=== PATIENT | male | born 1960 | race Caucasian/White ===

== ENCOUNTER 2021-02-02 11:05 | Outpatient (REF) | payer OTHER, SELFPAY ==
[2021-02-02 11:48] LABS: Influenza A PCR NEGATIVE (Negative); Influenza B PCR NEGATIVE (Negative); Resp Syncy Virus RNA Qual PCR NEGATIVE (Negative); SARS COV2 PCR INHOUSE NEGATIVE (Negative)
== END 2021-02-02 11:06 | disposition home or self-care (01) ==
LOC: HO.LNP 11:05
PROVIDERS: Visit Provider Internal Medicine
DX: Z20.822 Contact with and (suspected) exposure to COVID-19 (principal); R07.9 Chest pain, unspecified; R05 Cough
CPT/HCPCS: 0241U

== ENCOUNTER 2021-09-08 06:03 | Outpatient (REF) | payer OTHER, SELFPAY ==
[2021-09-08 06:14] LABS: MANUAL DIFF FLAG NO
[2021-09-08 07:21] LABS: Basophils Absolute Auto 0.1 X10*3/uL (0.0-0.2); Basophils Percent Auto 0.8 % (0-2); Hematocrit 53.5 % (42.0-52.0); Hemoglobin 17.6 g/dl (14.0-18.0); Imm Gran Abs Auto 0.02 X10*3/uL (0.00-0.03); Imm Gran Pct Auto 0.3 % (0.0-0.4); Lymphocytes Absolute Auto 2.3 X10*3/uL (1.2-4.9); Lymphocytes Percent Auto 35.8 % (20-40); Mean Corpuscular HGB Conc 32.9 g/dl (31.0-36.0); Mean Corpuscular Hemoglobin 29.3 pg (27.0-33.0); Mean Corpuscular Volume 89.2 fL (80.0-98.0); Mean Platelet Volume 10.7 fL (9.4-12.4); Monocytes Absolute Auto 0.6 X10*3/uL (0.1-1.2); Monocytes Percent Auto 9.8 % (2-11); Neutrophils Absolute Auto 3.5 x10*3/uL (2.0-8.3); Neutrophils Percent Auto 53.3 % (45-73); Platelet Count 239 X10*3/uL (160-400); Red Cell Distribution Width 12.9 % (11.0-16.0); White Blood Count 6.5 X10*3/uL (4.8-10.8)
[2021-09-08 07:52] LABS: Alanine Aminotransferase 26 U/L (0-40); Albumin Level 4.4 g/dL (3.5-5.0); Alkaline Phosphatase 68 U/L (39-117); Anion Gap 11 (12-20); Aspartate Amino Transferase 19 U/L (5-37); Bilirubin Total 1.7 mg/dL (0.0-1.0); Blood Urea Nitrogen 13 mg/dL (9-16); Calcium 9.7 mg/dL (8.4-10.2); Carbon Dioxide 30 mmol/L (22-29); Chloride 103 mmol/L (96-108); Cholesterol 163 mg/dL; Estimated Glomerular Filt Rate > 60; Glucose Fasting 96 mg/dL (60-99); HDL Cholesterol 41 mg/dL; LDL Cholesterol Calculated 101 mg/dl; Potassium 4.3 mmol/L (3.3-5.1); Sodium 140 mmol/L (135-145); Total Protein 7.1 g/dL (6.5-8.0); Triglycerides 106 mg/dL
[2021-09-08 08:41] LABS: Prostate Specific Antigen Scr 1.61 ng/mL (<0.05-4.0)
== END 2021-09-08 06:04 | disposition home or self-care (01) ==
LOC: HO.LAB 06:03
PROVIDERS: PCP Internal Medicine; Visit Provider Internal Medicine
DX: Z00.00 Encounter for general adult medical examination without abnormal findings (principal); Z12.5 Encounter for screening for malignant neoplasm of prostate
CPT/HCPCS: 36415; 80053; 80061; 84153; 85025

== ENCOUNTER 2021-10-01 06:56 | Day surgery (SDC) | payer OTHER, SELFPAY ==
--- NOTE | 2021-09-30 10:20 | P.CONAN_ITS ---
Documented by User: Greta George NP 09/30/21 10:20 HPI - Anesthesia Eval Consult details Narrative: 60yo M for Colonoscopy COUNT INCLUDES THE [facility] Past Medical History Medical History (Updated 09/27/21 @ 11:49 by Margot Ludwig RN) HTN (hypertension) Surgical History Surgical History (Updated 09/27/21 @ 11:49 by Margot Ludwig RN) History of appendectomy History of left inguinal hernia repair Hx of colonoscopy Social History Social History Patient Tobacco Use Status: Never used Tobacco Use of substances other than those prescribed or required for medical reasons: No Are you DNR?: No Advance Directives: No Advance Directives Information Provided: Yes Nutrition Risks: No Nutritional Risk Meds Allergies Allergy/AdvReac Type Severity Reaction Status Date / Time FLORES ALEXUS Allergy Unknown RUNNY NOSE Uncoded 09/27/21 11:49 Home Medications Medication Instructions Recorded Confirmed Last Taken Type aspirin 81 mg tablet,delayed 81 mg PO DAILY 09/27/21 09/27/21 09/21/21 History release lisinopril 20 mg tablet 1 tab PO DAILY 09/27/21 09/27/21 10/01/21 History Exam Exam Date and Time: September 30, 2021 1020 Pertinent Lab Results Pertinent Lab Results: Laboratory Tests 09/08/21 09/08/21 06:11 06:11 WBC 6.5 Hgb 17.6 Hct 53.5 H Plt Count 239 Sodium 140 Potassium 4.3 Chloride 103 Carbon Dioxide 30 H BUN 13 Creatinine 1.00 Assessment and Plan Assessment Anesthesia Assessment: Chart Reviewed Documented by User: Jay Forte MD 10/04/21 21:21 COUNT INCLUDES THE [facility] Past Medical History Medical History (Updated 09/27/21 @ 11:49 by Margot Ludwig RN) HTN (hypertension) Functional capacity: independent ambulation Family History Family history of problems with anesthesia: No Surgical History Surgical History (Updated 09/27/21 @ 11:49 by Margot Ludwig RN) History of appendectomy History of left inguinal hernia repair Hx of colonoscopy History of Problems with Anesthesia: Yes (Delayed emergence ) Social History Social History Patient Tobacco Use Status: Never used Tobacco Use of substances other than those prescribed or required for medical reasons: No Are you DNR?: No Advance Directives: No Advance Directives Information Provided: Yes Nutrition Risks: No Nutritional Risk Meds Allergies Allergy/AdvReac Type Severity Reaction Status Date / Time FLORES ALEXUS Allergy Unknown RUNNY NOSE Uncoded 09/27/21 11:49 Home Medications Medication Instructions Recorded Confirmed Last Taken Type aspirin 81 mg tablet,delayed 81 mg PO DAILY 09/27/21 09/27/21 09/21/21 History release lisinopril 20 mg tablet 1 tab PO DAILY 09/27/21 09/27/21 10/01/21 History Exam Airway Mallampati Class: II TM Dist: >3cm Neck ROM: Limited Loose/Missing/Broken Teeth: Yes (Poor dentation ) Heart: rrr Lungs: b/l breath sounds Assessment and Plan Assessment Anesthesia Assessment: Anesthesia Plan Discussed Final Anesthetic Review Family History of Problems with Anesthesia: No History of Problems with Anesthesia: Yes (Delayed emergence ) NPO: Yes ASA Class: II Final Preanesthetic Review: Meds/Allgs Chart Reviewed, Consent Obtained/Reviewed and Anes Risks/Benef Reviewed Patient Risk: Intermediate Procedure Risk: Intermediate Anesthetic Plan Anesthetic Plan: MAC: Disposition: Standard PACU
[2021-10-01 07:03] VITALS: BMI 27.9
[2021-10-01 07:07] VITALS: BP 122/91; PULSE 111; RESP 18; TEMP 36.3; O2SAT 95
[2021-10-01] MEDS: Lactated Ringers 1,000 ML 100 ML IVCONT (07:15)
[2021-10-01 08:35] VITALS: BP 93/56; PULSE 81; RESP 19; TEMP 36.6; O2SAT 96
--- NOTE | 2021-10-01 08:35 | P.BOP_ITS ---
Brief Operative Note Date of Service: 10/01/21 Pre-op diagnosis: Screening Post-op diagnosis: other (Colon polyp) Procedure: Colonoscopy to the cecum and TI with cold snare polypectomy Surgeon: Dayday Banks Anesthesia: MAC Was an Pharmaceutical Physician used for this Procedure?: No Estimated blood loss (mL): 2.0 Pathology: other (A. Ascending colon polyp) Condition: stable Disposition: PACU
[2021-10-01 08:50] VITALS: BP 114/73; PULSE 73; RESP 16; TEMP 36.6; O2SAT 95
--- NOTE | 2021-10-01 11:48 | OP_ITS ---
SURGEON: Dayday Banks MD INDICATIONS: The patient presents for evaluation of personal history of tubular adenoma of the colon, and family history of colon cancer. Full consent obtained from him for this, including risks of bleeding and perforation. PREOPERATIVE DIAGNOSIS: POSTOPERATIVE DIAGNOSIS: PROCEDURE PERFORMED: Colonoscopy to cecum and terminal ileum with cold snare polypectomy. ESTIMATED BLOOD LOSS: COMPLICATIONS: ANESTHESIA: Monitored anesthesia care. ASSISTANTS: SPECIMENS: PREOPERATIVE DIAGNOSES: Personal history of tubular adenoma of the colon, family history colon cancer, colorectal cancer screening. POSTOPERATIVE DIAGNOSES: Personal history of tubular adenoma of the colon, family history colon cancer, colorectal cancer screening, small colon polyp, diverticulosis, and internal hemorrhoids. DESCRIPTION OF PROCEDURE: The patient was placed in the left lateral decubitus position. The digital rectal exam revealed no abnormalities. The Olympus video pediatric colonoscope was entered into the rectum and advanced easily to the cecum. Once in the cecum, identified normal-appearing cecal pouch with a normal-appearing ileocecal valve. The entire cecum was well visualized and appeared normal. The terminal ileum was cannulated and appeared normal. The scope was withdrawn back in the colon. The entire cecum and ileocecal valve appeared normal. The scope was slowly withdrawn assessing all mucosal surfaces carefully. Preparation was excellent. In the proximal ascending colon, there was a flat approximately 5 mm polyp, which was removed with cold snare polypectomy and recovered by suction. The polypectomy site appeared free of any residual polyp tissue and without any significant bleeding. I did not visualize any other polyps, colitis, nor angiodysplasia. There was a mild amount of sigmoid diverticulosis. In the rectum, scope was retroflexed visualizing small internal hemorrhoids, but no other pathology. The rectal mucosa appeared normal. The scope was straightened and withdrawn from the patient. He tolerated the procedure well and was returned to the recovery area in stable condition. IMPRESSION: 1. Small colon polyp, status post cold snare polypectomy. 2. Mild diverticulosis. 3. Small internal hemorrhoids. PLAN: The results of the pathology will be checked. I would recommend a repeat colonoscopy in 5 years for further screening. He was advised not to use any aspirin or NSAIDs for 1 week. MD MANJULA Diaz/ALFRED / [id number]
== END 2021-10-01 09:30 | disposition home or self-care (01) ==
PROVIDERS: PCP Internal Medicine; Visit Provider Internal Medicine
PROC: 0DJD8ZZ Inspection of Lower Intestinal Tract, Via Natural or Artificial Opening Endoscopic (ICD-10-PCS; CPT 45378; principal; 2021-10-01 08:20)
DX: Z12.11 Encounter for screening for malignant neoplasm of colon (principal); D12.2 Benign neoplasm of ascending colon; K57.30 Diverticulosis of large intestine without perforation or abscess without bleeding; K64.8 Other hemorrhoids; Z86.010 Personal history of colon polyps; Z80.0 Family history of malignant neoplasm of digestive organs; I10 Essential (primary) hypertension; Z79.82 Long term (current) use of aspirin; Z79.899 Other long term (current) drug therapy
CPT/HCPCS: 45385; 88305

== ENCOUNTER 2023-03-13 06:06 | Outpatient (REF) | payer OTHER, SELFPAY ==
[2023-03-13 06:15] LABS: MANUAL DIFF FLAG NO
[2023-03-13 08:06] LABS: Basophils Absolute Auto 0.1 X10*3/uL (0.0-0.2); Basophils Percent Auto 0.8 % (0-2); Eosinophils Absolute Auto 0.1 X10*3/uL (0.0-0.4); Eosinophils Percent Auto 0.8 % (0-4); Hemoglobin 18.1 g/dl (14.0-18.0); Imm Gran Abs Auto 0.03 X10*3/uL (0.00-0.03); Imm Gran Pct Auto 0.5 % (0.0-0.4); Lymphocytes Absolute Auto 2.2 X10*3/uL (1.2-4.9); Lymphocytes Percent Auto 33.4 % (20-40); Mean Corpuscular HGB Conc 33.5 g/dl (31.0-36.0); Mean Corpuscular Hemoglobin 29.1 pg (27.0-33.0); Mean Corpuscular Volume 86.7 fL (80.0-98.0); Mean Platelet Volume 10.4 fL (9.4-12.4); Monocytes Absolute Auto 0.9 X10*3/uL (0.1-1.2); Neutrophils Absolute Auto 3.3 x10*3/uL (2.0-8.3); Neutrophils Percent Auto 50.5 % (45-73); Platelet Count 227 X10*3/uL (160-400); Red Blood Count 6.23 X10*6/uL (4.60-5.80); Red Cell Distribution Width 13.2 % (11.0-16.0); White Blood Count 6.5 X10*3/uL (4.8-10.8)
[2023-03-13 08:29] LABS: Appearance Urine Clear; Color Urine Yellow; Glucose Urine UA Negative (Negative); Leukocyte Esterase Urine Negative (Negative); Nitrite Urine Negative (Negative); PH 6.5 (5.0-9.0); Specific Gravity - Urine 1.015 (1.005-1.025); Urine Blood Negative (Negative); Urine Ketones Negative (Negative); Urine Protein Negative (Neg-Trace)
[2023-03-13 08:43] LABS: Alanine Aminotransferase 39 U/L (0-40); Albumin Level 4.4 g/dL (3.5-5.0); Alkaline Phosphatase 73 U/L (39-117); Anion Gap 12 (12-20); Aspartate Amino Transferase 28 U/L (5-37); Bilirubin Total 1.7 mg/dL (0.0-1.0); Blood Urea Nitrogen 13 mg/dL (9-16); Calcium 9.6 mg/dL (8.4-10.2); Carbon Dioxide 28 mmol/L (22-29); Chloride 106 mmol/L (96-108); Cholesterol 159 mg/dL (<200); Estimated Glomerular Filt Rate > 60; Glucose Fasting 93 mg/dL (60-99); HDL Cholesterol 46 mg/dL (>40); LDL Cholesterol Calculated 94 mg/dL (<100); Potassium 4.1 mmol/L (3.3-5.1); Sodium 142 mmol/L (135-145); Total Protein 7.3 g/dL (6.5-8.0); Triglycerides 96 mg/dL (<150)
[2023-03-13 08:54] LABS: Prostate Specific Antigen 1.76 ng/mL (<0.05-4.0)
== END 2023-03-13 06:07 | disposition home or self-care (01) ==
LOC: HO.LAB 06:06
PROVIDERS: PCP Internal Medicine; Visit Provider Internal Medicine
DX: Z00.00 Encounter for general adult medical examination without abnormal findings (principal); Z12.5 Encounter for screening for malignant neoplasm of prostate; R80.9 Proteinuria, unspecified; Z13.6 Encounter for screening for cardiovascular disorders
CPT/HCPCS: 36415; 80053; 80061; 81003; 84153; 85025

== ENCOUNTER 2023-07-26 16:02 | Outpatient (REF) | payer OTHER, SELFPAY ==
[2023-07-26 16:18] LABS: MANUAL DIFF FLAG NO
[2023-07-26 17:57] LABS: Basophils Absolute Auto 0.1 X10*3/uL (0.0-0.2); Basophils Percent Auto 0.8 % (0-2); Eosinophils Percent Auto 0.1 % (0-4); Hematocrit 53.1 % (42.0-52.0); Hemoglobin 18.1 g/dl (14.0-18.0); Imm Gran Abs Auto 0.03 X10*3/uL (0.00-0.03); Imm Gran Pct Auto 0.4 % (0.0-0.4); Lymphocytes Absolute Auto 2.5 X10*3/uL (1.2-4.9); Mean Corpuscular HGB Conc 34.1 g/dl (31.0-36.0); Mean Corpuscular Hemoglobin 29.5 pg (27.0-33.0); Mean Corpuscular Volume 86.6 fL (80.0-98.0); Monocytes Absolute Auto 0.8 X10*3/uL (0.1-1.2); Monocytes Percent Auto 10.1 % (2-11); Neutrophils Absolute Auto 4.4 x10*3/uL (2.0-8.3); Neutrophils Percent Auto 56.6 % (45-73); Platelet Count 245 X10*3/uL (160-400); Red Blood Count 6.13 X10*6/uL (4.60-5.80); Red Cell Distribution Width 13.1 % (11.0-16.0); White Blood Count 7.8 X10*3/uL (4.8-10.8)
[2023-07-26 18:32] LABS: Appearance Urine Clear; Color Urine Yellow; Glucose Urine UA Negative (Negative); Leukocyte Esterase Urine Negative (Negative); Nitrite Urine Negative (Negative); Specific Gravity - Urine 1.015 (1.005-1.025); Urine Blood Negative (Negative); Urine Ketones Negative (Negative); Urine Protein Negative (Neg-Trace)
[2023-07-26 18:44] LABS: Anion Gap 12 (12-20); Blood Urea Nitrogen 10 mg/dL (9-16); C Reactive Protein < 0.04 mg/dL (< or = 0.50); Calcium 9.6 mg/dL (8.4-10.2); Carbon Dioxide 27 mmol/L (22-29); Chloride 106 mmol/L (96-108); Estimated Glomerular Filt Rate > 60; Glucose Random 79 mg/dL (60-115); Potassium 3.8 mmol/L (3.3-5.1); Sodium 141 mmol/L (135-145)
== END 2023-07-26 16:03 | disposition home or self-care (01) ==
LOC: HO.LAB 16:02
PROVIDERS: PCP Internal Medicine; Visit Provider Internal Medicine
DX: R10.32 Left lower quadrant pain (principal)
CPT/HCPCS: 36415; 80048; 81003; 85025; 86140; 87086

== ENCOUNTER 2024-06-15 07:28 | Outpatient (REF) | payer BC, SELFPAY ==
[2024-06-15 07:44] LABS: MANUAL DIFF FLAG NO
[2024-06-15 08:28] LABS: Basophils Absolute Auto 0.1 X10*3/uL (0.0-0.2); Basophils Percent Auto 1.2 % (0-2); Eosinophils Percent Auto 0.3 % (0-4); Hematocrit 51.4 % (42.0-52.0); Hemoglobin 17.6 g/dl (14.0-18.0); Imm Gran Abs Auto 0.02 X10*3/uL (0.00-0.03); Imm Gran Pct Auto 0.3 % (0.0-0.4); Lymphocytes Absolute Auto 2.1 X10*3/uL (1.2-4.9); Lymphocytes Percent Auto 35.7 % (20-40); Mean Corpuscular HGB Conc 34.2 g/dl (31.0-36.0); Mean Corpuscular Hemoglobin 29.9 pg (27.0-33.0); Mean Corpuscular Volume 87.4 fL (80.0-98.0); Mean Platelet Volume 10.8 fL (9.4-12.4); Monocytes Absolute Auto 0.5 X10*3/uL (0.1-1.2); Monocytes Percent Auto 9.4 % (2-11); Neutrophils Absolute Auto 3.1 x10*3/uL (2.0-8.3); Neutrophils Percent Auto 53.1 % (45-73); Platelet Count 206 X10*3/uL (160-400); Red Blood Count 5.88 X10*6/uL (4.60-5.80); Red Cell Distribution Width 13.3 % (11.0-16.0); White Blood Count 5.8 X10*3/uL (4.8-10.8)
[2024-06-15 09:08] LABS: Alanine Aminotransferase 29 U/L (0-40); Albumin Level 4.5 g/dL (3.5-5.0); Alkaline Phosphatase 64 U/L (39-117); Anion Gap 11 (12-20); Aspartate Amino Transferase 20 U/L (5-37); Bilirubin Total 1.6 mg/dL (0.0-1.0); Blood Urea Nitrogen 16 mg/dL (9-16); Calcium 9.2 mg/dL (8.4-10.2); Carbon Dioxide 28 mmol/L (22-29); Chloride 107 mmol/L (96-108); Cholesterol 179 mg/dL (<200); Estimated Glomerular Filt Rate > 60; Glucose Fasting 103 mg/dL (60-99); HDL Cholesterol 47 mg/dL (>40); LDL Cholesterol Calculated 115 mg/dL (<100); Potassium 3.9 mmol/L (3.3-5.1); Sodium 142 mmol/L (135-145); Total Protein 7.2 g/dL (6.5-8.0); Triglycerides 89 mg/dL (<150)
[2024-06-15 09:21] LABS: Prostate Specific Antigen 2.09 ng/mL (<0.05-4.0)
== END 2024-06-15 07:29 | disposition home or self-care (01) ==
LOC: HO.LAB 07:28
PROVIDERS: PCP Internal Medicine; Visit Provider Internal Medicine
DX: I10 Essential (primary) hypertension (principal); N40.0 Benign prostatic hyperplasia without lower urinary tract symptoms; Z12.5 Encounter for screening for malignant neoplasm of prostate
CPT/HCPCS: 36415; 80053; 80061; 84153; 85025

== ENCOUNTER 2024-12-23 15:33 | Outpatient (AMB) | payer OTHER, SELFPAY ==
--- NOTE | 2024-12-23 15:41 | A.OFFPC_ITS ---
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: No Accompanied by: Self / Same As Patient Allergies FLORES ALEXUS Allergy (Unknown, Uncoded 01/07/25 19:15) RUNNY NOSE Medication List - Last Reconciled 01/07/25 by Skyler Walden MD lisinopril 1 tab PO DAILY Tobacco use date assessed: 12/23/24 Fall risk assessment: No Falls in past year Last assessed Fall Risk: 12/23/24 Dental Screening Dental Screen Date: 12/23/24 Did you have a dental visit in the last 12 months?: No Did you have a dental problem in the last 6 months where you did not have access to dental care?: No [facility] Medical History (Updated 12/23/24 @ 16:05 by Skyler Walden MD) HTN (hypertension) Surgical History History of left inguinal hernia repair History of appendectomy Hx of colonoscopy (~10/01/21) Family History (Updated 12/23/24 @ 15:49 by Nalini Villatoro MA) Mother No problems noted. Father No problems noted. Social History Housing: House Patient Tobacco Use Status: Former Tobacco user e-Cigarette/Vaping Use: Former Use Current occupational status: retired Cognitive needs: No Hearing needs: No Vision needs: Yes (rx glasses) Questionnaire PHQ-9 Over the last 2 weeks, how often have you been bothered by any of the following problems? 1. Little interest or pleasure in doing things: not at all 2. Feeling down, depressed, or hopeless: not at all 3. Trouble falling or staying asleep, or sleeping too much: not at all 4. Feeling tired or having little energy: not at all 5. Poor appetite or overeating: not at all 6. Feeling bad about yourself - or that you are a failure or have let yourself or your family down: not at all 7. Trouble concentrating on things, such as reading the newspaper or watching television: not at all 8. Moving or speaking so slowly that other people could have noticed. Or the opposite - being so fidgety or restless that you have been moving around a lot more than usual: not at all 9. Thoughts that you would be better off or of hurting yourself in some way: not at all Total score: 0 Depression Screening Interpretation: Negative Depression Screening Done: Yes Source: Developed by Drs. Dayday Mei, Humaira Lerma, Jaden Belcher and colleagues, with an educational anibal from [employer]. Thrive Questionnaire Date Thrive assessed: 12/23/24 I am a: Patient Within the past 12 months, did the food you bought not last and you didn't have the money to get more?: Never true Within the past 12 months, did you worry whether your food would run out before you got money to buy more?: Never true Do you have trouble paying for medicines?: No Do you have trouble getting transportation to medical appointments?: No Do you have trouble paying your heating and electricity bill?: No Do you have trouble taking care of your child, family member or friend?: No Do you have trouble with day-to-day activities such as bathing, preparing meals, shopping, managing finances, etc.?: No Are you currently unemployed and looking for a job?: No Are you interested in more education?: No Currently or been in a relationship where the following occur: No concerns rep orted THRIVE Score: 0 AUDIT C Alcohol Use Questionnaire (AUDIT-C) 1. How often do you have a drink containing alcohol?: Never 3. How often do you have six or more drinks on one occasion?: Never Total Score: 0 ISREAL-7 AMB Questionnaire ISREAL-7 Date ISREAL - 7 assessed: 12/23/24 Feeling nervous, anxious, or on edge: 0 = Not at all Not being able to stop or control worryin = Not at all Worrying too much about different things: 0 = Not at all Trouble relaxin = Not at all Being so restless that it is hard to sit still: 0 = Not at all Becoming easily annoyed or irritable: 0 = Not at all Feeling afraid as if something awful might happen: 0 = Not at all Total ISREAL-7 score (0-4 normal; 5-9 mild; 10-14 moderate; 15-21 severe): 0 Source: Developed by Drs. Dayday Mei, Humaira Lerma, Jaden Belcher and colleagues, with an educational anibal from [employer]. Physical exam (Primary Care) Vital Signs: Last Vital Signs Temp 97.1 F 12/23/24 15:43 Pulse 73 12/23/24 15:43 BP 132/80 12/23/24 15:43 Pulse Ox 98 12/23/24 15:43 Oxygen Delivery Method Room Air 12/23/24 15:43 Care Plan Goal for BP management: BP in range BMI result Body Mass Index 28.6 Tobacco/Smoking Status: Tobacco use Status Tobacco use date assessed 12/23/24 12/23/24 15:43 Patient Tobacco Use Status Former Tobacco user 12/23/24 15:49 e-Cigarette/Vaping Use Former Use 12/23/24 15:49 PHQ-9: PHQ-9 Score PHQ-9: Total score 0 12/23/24 16:15 Depression Screening Interpretation: Negative Thrive Assessment: Date of Thrive Assessment Date Thrive assessed 12/23/24 12/23/24 15:43 Currently or been in a relationship where the following occur: No concerns reported Coding Level of Care Code New Pt Level 4 (17698) Complex EM visit Add On G2211 Diagnoses HTN (hypertension) I10 Assessment & Plan Assessment & Plan (1) HTN (hypertension): Code(s): I10 - Essential (primary) hypertension Category: Medical Plan: History of Present Illness - The patient is a 64-year-old male presenting with a wellness visit. - Reports lower back pain, described as inflammation that is triggered occasionally, but has been well-managed this year. - Engages in regular physical activity, including walking and golfing five to six times a week, which he believes helps manage his back pain. - History of a colonoscopy performed in 2020, with the next one due next year, delayed due to COVID-19. - Reports increased urinary frequency, particularly at night, needing to urinate once or twice, but denies any issues with urination during the day. - History of wearing contact lenses and reports good vision with annual check- ups. 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 - He engages in regular physical activity, including walking and golfing five to six times a week. - The patient reports not eating very well but maintains an active lifestyle. Review of Systems - Musculoskeletal: Reports lower back pain, described as inflammation that is triggered occasionally. - Genitourinary: Reports increased urinary frequency, particularly at night, needing to urinate once or twice. Denies issues with urination during the day. - Ophthalmologic: Reports good vision with the use of contact lenses and annual check-ups. Physical Exam General: Cooperative and healthy appearing Nutritional Appearance: Well nourished Orientation/consciousness: Patient oriented x3 Limitations: No limitations Head: Normal to inspection General: Appearance normal, both eyes and all related structures Neck: Normal visual inspection Chest: Normal palpation of entire chest wall Respiratory: N ormal respiratory effort Neurology: Patient oriented x3, no significant neurological complaints noted. Results Plan 1. Lower Back Pain - Continue regular physical activity, including walking and golfing, as it helps manage symptoms. 2. Preventative Care: Colonoscopy - Schedule colonoscopy for next year as part of routine preventative care. Discussion Notes Patient Instructions Orders: Orders Lipase 12/23/24 K85.90 - Acute pancreatitis without necrosis or infection, unspecified, I10 - Essential (primary) hypertension Lipid Panel 12/23/24 I10 - Essential (primary) hypertension UA and rflx microscopic 12/23/24 I10 - Essential (primary) hypertension Liver Panel 12/23/24 I10 - Essential (primary) hypertension Basic Metabolic Panel 12/23/24 I10 - Essential (primary) hypertension Complete Blood Count no Diff 12/23/24 I10 - Essential (primary) hypertension Thyroid Stimulating Hormone 12/23/24 I10 - Essential (primary) hypertension
[2024-12-23 15:43] VITALS: BP 132/80; PULSE 73; TEMP 36.2; O2SAT 98; BMI 28.6
--- OUTSIDE RECORDS SUMMARY | 2024-12-23 17:01 | XMS_ITS | Patient Health Record ---
Author Organization [facility] Address [address] [place] [address] Care Team Providers Care Whiskey Proof Reader Name Role Phone Luis Carlos Gan MD Primary Care Provider Dayday Gunn Unavailable [phone] Allergies No Known Allergies Reason For Referral No Information Medications Medication SIG (Take, Route, Fr equency, Duration) Notes Start Date End Date Status Aspirin 81 81 MG 1 tablet Orally twice a week Active Lisinopril 20 MG 1 tablet Orally Once a day Active Immunizations Vaccine Route Administration Date Status Comme nts Influenza Unknown 08/11/2021 Refused Influenza Unknown 08/11/2021 Refused Problems Problem Type SNOMED Code ICD Code Onset Dates Problem Status W/U Status Risk Notes Problem 996870255 Encounter for screening for malignant neoplasm of colon (Z12.11) Active confirmed Problem Screening for malignant neoplasm of rectum (233064947) Encounter for screening for malignant neoplasm of rectum (Z12.12) Active confirmed Problem 91456122 Preprocedural examination (Z01.818) Active confirmed Problem 996623971 Family history o f colon cancer (Z80.0) Active confirmed Problem 063874316 Hx of adenomatou s colonic polyps (Z86.010) Active confirmed Problem Diverticulosis of colon (919560334) Diverticulosis of colon (K57.30) Active confirmed Plan Of Treatment Pending Test Test Name Order Date Pathology 10/01/2021 Future Test Test Name Order Date COLONOSCOPY 12/16/2015 COLONOSCOPY 08/11/2021 Insurance Providers Payer Name Payer Address Payer Phone Subscriber Number Group Number Insured Name Patient Relationship to Insured Coverage Start Date Coverage End Date [facility] [address] [place] [address] [id number] PROST, CONSTANT Self - patient is the insured Medical (General) History Medical History History ICD Code Hypertension Denies HI,DM,CVA,Lung disease,renal dise ase Negative colonoscopy in 07/[address] Burr Colonoscopy in April of 2016--small tu bular adenoma removed Surgical History Surgery Date(Month/Year) Appendectomy 2013 Left inguinal and umbilical hernia repai r 2010
== END 2024-12-23 16:05 | disposition home or self-care (01) ==
LOC: HO.HMCHD 15:33
PROVIDERS: PCP Internal Medicine; Visit Provider Internal Medicine
DX: I10 Essential (primary) hypertension (principal)

== ENCOUNTER → 2024-12-23 15:33 | Outpatient (BNVA) | payer OTHER, SELFPAY | PROVIDERS: PCP Internal Medicine; Visit Provider Internal Medicine | DX: Z13.89 Encounter for screening for other disorder (principal) ==

== ENCOUNTER 2025-03-18 07:50 | Outpatient (REF) | payer OTHER, SELFPAY ==
--- OUTSIDE RECORDS SUMMARY | 2025-03-18 07:54 | XMS_ITS | Patient Health Record ---
Author Organization [facility] Address [address] [place] [address] Care Team Providers Care Fisher Diving Name Role Phone Elvia (RETIRED) Luis Carlos ESCAMILLA Primary Care Provide r Unavailable Dayday Banks Unavailable [phone] Allergies No Known Allergies Reason For Referral [...] Problem Status W/U Status Risk Notes Problem 740942944 Encounter for screening for malignant neoplasm of colon (Z12.11) Active confirmed Problem Screening for malignant neoplasm of rectum (259500034) Encounter for screening for malignant neoplasm of rectum (Z12.12) Active confirmed Problem 49369654 Preprocedural examination (Z01.818) Active confirmed Problem 389040116 Family history o f colon cancer (Z80.0) Active confirmed Problem 244534589 Hx of adenomatou s colonic polyps (Z86.010) Active confirmed Problem Diverticulosis of colon (059775391) Diverticulosis of colon (K57.30) Active confirmed Plan Of Treatment Pending Test Test Name Order Date Pathology 10/01/2021 Future Test Test Name Order Date COLONOSCOPY 12/16/2015 COLONOSCOPY 08/11/2021 Insurance Providers Payer Name Payer Address Payer Phone Subscriber Number Group Number Insured Name Patient Relationship to Insured Coverage Start Date Coverage End Date [facility] [address] [place] [address] [id number] PROST, CONSTANT Self - patient is the insured Medical (General) History Medical History History ICD Code Hypertension Denies [place],DM,CVA,Lung disease,renal dise ase Negative colonoscopy in 07/[address] Burr Colonoscopy in April of 2016--small tu bular adenoma removed Surgical History Surgery Date(Month/Year) Appendectomy 2013 Left inguinal and umbilical hernia repai r 2010
--- OUTSIDE RECORDS SUMMARY | 2025-03-18 07:54 | XMS_ITS | Clinical Summary ---
Author Organization [facility] Address [address] [place] [phone] Phone Care Team Providers Care Networks Software Consultant Name Role Phone Skyler Walden MD Primary Care Provid er Allergies No known active allergies Medications lisinopril (PRINIVIL,ZESTRI L) 20 MG tablet 1 tablet Orally Once a day Active Active Problems Problem Noted Date Diagnosed Date Diverticulosis of colon 02/02/2025 Hx of adenomatous colonic polyps 02/02/2025 Family history of colon cancer 02/02/2025 Encounters Date Type Department Care Team Description 02/02/2025 1:40 PM EDT Office Visit [facility] [address] [address] Keri Ford CNP Acute cough (Primary Dx) from Last 3 Months Immunizations No known immunizations Social History Tobacco Use Types Packs/Day Years Used Date Smoking Tobacco: Former Cigarettes Q uit: 1985 Passive Smoke Exposure: Current Smokeless Tobacco: Never Tobacco Cessation:Counseling Given: Not Answered Education Answer Date Recorded Are you interested in more education? Not on rashawn e 02/02/2025 Are you concerned about learning? Not on file 02/02/2025 No 02/02/2025 No 02/02/2025 Digital Access Answer Date Recorded No 02/02/2025 No 02/02/2025 Reliable internet access at home? Not on file 02/02/2025 Device with a working camera? Not on file Sex and Gender Information Value Date Recorded Sex Assigned at Not on file Legal Sex Male 1:33 PM EDT Gender Identity Not on file Sexual Orientation Not on file Last Filed Vital Signs Vital Sign Reading Time Taken Comments Blood Pressure 170/90 02/02/2025 2:52 PM EDT Pulse 87 02/02/2025 2:31 PM EDT Temperature 36.8 C (98.2 F) 02/02/2025 2:31 PM EDT Respiratory Rate 18 02/02/2025 2:31 PM EDT Oxygen Saturation 99% 02/02/2025 2:31 PM EDT Inhaled Oxygen Concentration - - Weight 82.6 kg (182 lb) 02/02/2025 2:31 PM EDT Height 172.7 cm (5' 8 ) 02/02/2025 2:31 PM EDT Body Mass Index 27.67 02/02/2025 2:31 PM EDT Plan of Treatment Health Maintenance Due Date Last Done Comments Adult Td,Tdap Booster 1960 CREATININE LEVEL 1960 LIPID PANEL 1960 POTASSIUM LEVEL 1960 DEPRESSION SCREENING 1972 HEPATITIS C SCREENING 1978 HIV ONE-TIME SCREENING (18-6 5 YEARS) 1978 SCREENING FOR DIABETES 10/30/1995 COLOGUARD 2005 COLONOSCOPY 2005 COLORECTAL CANCER SCREENING 2005 FIT TEST 2005 FOBT 2005 SIGMOIDOSCOPY 2005 VIRTUAL COLONOSCOPY 2005 PNEUMOCOCCAL VACCINES (50+ y ears) (1 of 1 - PCV) 2010 ZOSTER VACCINES (1 of 2) 2010 INFLUENZA VACCINE (#1) 2025 COVID-19 VACCINE (2 - 2024-2 6 season) 2025 07/01/2021 SMOKING Hx and SMOKELESS TOB ACCO SCREENING 02/02/2026 02/02/2025 RSV VACCINE (1 - 1-dose 75+ series) 10/30/2035 HEPATITIS A VACCINES Aged Out No long er eligible based on patient's age to complete this topic HIB VACCINES Aged Out No longer eligi ble based on patient's age to complete this topic MENINGOCOCCAL VACCINES (ACWY) Aged Out No longer eligible based on patient's age to complete this topic MENINGOCOCCAL VACCINES (B) Aged Out N o longer eligible based on patient's age to complete this topic Medical Devices Not on file Insurance [employer] NON NSPG PCP [facility] Care Teams Networks Software Consultant Relationship Specialty Start Date End Date Skyler Walden MD [address] [place] [id number] PCP - General Internal Medicine 02/02/25 Additional Source Comments The information contained in this document represents components of the legal health record. It is not the complete legal health record.[facility]
[2025-03-18 08:35] LABS: Hematocrit 52.3 % (42.0-52.0); Hemoglobin 17.8 g/dl (14.0-18.0); Mean Corpuscular HGB Conc 34.0 g/dl (31.0-36.0); Mean Corpuscular Hemoglobin 29.4 pg (27.0-33.0); Mean Corpuscular Volume 86.3 fL (80.0-98.0); NRBC Abs Auto 0.000 X10*3/uL (0.0-0.012); NRBC Pct Auto 0.0 /100WBC (0.0-0.2); Platelet Count 231 X10*3/uL (160-400); Red Blood Count 6.06 X10*6/uL (4.60-5.80); White Blood Count 5.8 X10*3/uL (4.8-10.8)
[2025-03-18 09:20] LABS: Alanine Aminotransferase 24 U/L (0-40); Albumin Level 4.8 g/dL (3.5-5.0); Alkaline Phosphatase 69 U/L (39-117); Anion Gap 12 (12-20); Aspartate Amino Transferase 31 U/L (5-37); Blood Urea Nitrogen 15 mg/dL (9-16); Calcium 9.4 mg/dL (8.4-10.2); Carbon Dioxide 27 mmol/L (22-29); Chloride 108 mmol/L (96-108); Cholesterol 170 mg/dL (<200); Estimated Glomerular Filt Rate > 60; HDL Cholesterol 44 mg/dL (>40); Lipase 57 U/L (8-78); Potassium 4.5 mmol/L (3.3-5.1); Sodium 142 mmol/L (135-145); Thyroid Stimulating Hormone 1.64 uIU/mL (0.32-4.0); Total Protein 7.6 g/dL (6.5-8.0); Triglycerides 103 mg/dL (<150)
[2025-03-18 09:44] LABS: Appearance Urine Clear; Glucose Urine UA Negative (Negative); PH 7.5 (5.0-9.0); Specific Gravity - Urine 1.020 (1.005-1.025)
== END 2025-03-18 07:51 | disposition home or self-care (01) ==
LOC: HO.LAB 07:50
PROVIDERS: PCP Internal Medicine; Visit Provider Internal Medicine
DX: I10 Essential (primary) hypertension (principal); K85.90 Acute pancreatitis without necrosis or infection, unspecified; Z01.84 Encounter for antibody response examination
CPT/HCPCS: 36415; 80048; 80061; 80076; 81003; 83690; 84443; 85027

== ENCOUNTER 2025-03-19 13:49 | Outpatient (AMB) | payer OTHER, SELFPAY ==
[2025-03-19 08:45] VITALS: BP 150/80; PULSE 92; O2SAT 98; BMI 28.1
--- NOTE | 2025-03-19 08:45 | A.OFFPC_ITS ---
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 Required: No Accompanied by: Self / Same As Patient Allergies FLORES ALEXUS Allergy (Mild, Uncoded 03/19/25 13:58) RUNNY NOSE Medication List - Last Reconciled 03/19/25 by TOMASA Parry cyclobenzaprine 10 mg PO DAILY lisinopril 30 mg PO DAILY Tobacco use date assessed: 03/19/25 Fall risk assessment: No Falls in past year Last assessed Fall Risk: 03/19/25 Dental Screening Dental Screen Date: 03/19/25 Did you have a dental visit in the last 12 months?: Yes Did you have a dental problem in the last 6 months where you did not have access to dental care?: No HPI HPI Comments History of Present Illness Details The patient is a 64-year-old male with HTN presenting to establish care and get medication refills. . The patient has a history of essential hypertension, currently managed with lisinopril 20mg . He reports that his blood pressure readings at home have been slightly elevated, with values such as 147/85 mmHg and 142/84 mmHg, although occasionally it measures lower at 132/75 mmHg. He visited urgent care in January due to elevated blood pressure and a dry cough, where his blood pressure was also noted to be high. . The patient describes experiencing a dry cough that prompted a visit to urgent care in January. He was prescribed benzonatate, which alleviated the cough within a few days. He does not usually have a chronic cough. But when he gets a cough it is usually dry. The patient maintains an active lifestyle, engaging in activities such as golfing five times a week and playing pickleball. He plans to travel to [place] in July and has a follow-up appointment scheduled for six months He had labs yesterday that were essentially normal. He had a colonoscopy in 10/2021. He will be due in 2026. . [facility] Medical History HTN (hypertension) Surgical History History of appendectomy History of left inguinal hernia repair Hx of colonoscopy (~10/01/21) Family History Mother No problems noted. Father No problems noted. Social History Housing: House Patient Tobacco Use Status: Former Tobacco user e-Cigarette/Vaping Use: Former Use service: No Current occupational status: retired Cognitive needs: No Hearing needs: No Vision needs: Yes (rx glasses) Questionnaire PHQ-9 Over the last 2 weeks, how often have you been bothered by any of the following problems? 1. Little interest or pleasure in doing things: not at all 2. Feeling down, depressed, or hopeless: not at all 3. Trouble falling or staying asleep, or sleeping too much: not at all 4. Feeling tired or having little energy: not at all 5. Poor appetite or overeating: not at all 6. Feeling bad about yourself - or that you are a failure or have let yourself or your family down: not at all 7. Trouble concentrating on things, such as reading the newspaper or watching television: not at all 8. Moving or speaking so slowly that other people could have noticed. Or the opposite - being so fidgety or restless that you have been moving around a lot more than usual: not at all 9. Thoughts that you would be better off or of hurting yourself in some way: not at all Total score: 0 Depression Screening Interpretation: Negative Depression Screening Done: Yes Source: Developed by Drs. Dayday Mei, Humaira Lerma, Jaden Belcher and colleagues, with an educational anibal from [employer]. Thrive Questionnaire Date Thrive assessed: 03/19/25 I am a: Patient Within the past 12 months, did the food you bought not last and you didn't have the money to get more?: Never true Within the past 12 months, did you worry whether your food would run out before you got money to buy more?: Never true Do you have trouble paying for medicines?: No Do you have trouble getting transportation to medical appointments?: No Do you have trouble paying your heating and electricity bill?: No Do you have trouble taking care of your child, family member or friend?: No Do you have trouble with day-to-day activities such as bathing, preparing meals, shopping, managing finances, etc.?: No Are you currently unemployed and looking for a job?: No Are you interested in more education?: No THRIVE Score: 0 AUDIT C Alcohol Use Questionnaire (AUDIT-C) 1. How often do you have a drink containing alcohol?: Never 3. How often do you have six or more drinks on one occasion?: Never Total Score: 0 ISREAL-7 AMB Questionnaire ISREAL-7 Date ISREAL - 7 assessed: 03/19/25 Feeling nervous, anxious, or on edge: 0 = Not at all Not being able to stop or control worryin = Not at all Worrying too much about different things: 0 = Not at all Trouble relaxin = Not at all Being so restless that it is hard to sit still: 0 = Not at all Becoming easily annoyed or irritable: 0 = Not at all Feeling afraid as if something awful might happen: 0 = Not at all Total ISREAL-7 score (0-4 normal; 5-9 mild; 10-14 moderate; 15-21 severe): 0 Source: Developed by Drs. Dayday Mei, Humaira Lerma, Jaden Belcher and colleagues, with an educational anibal from [employer]. Review of Systems Const Details: CONSTITUTIONAL Negative HEAD/NECK Negative RESPIRATORY No current dry cough. Denies dyspnea or wheezing. CARDIOVASCULAR Reports elevated blood pressure readings at home. Denies chest pain or palpitations GASTROINTESTINAL Negative MUSCULOSKELETAL Negative NEUROLOGICAL Negative PSYCHIATRIC Negative Physical exam (Primary Care) Vital Signs: Last Vital Signs Pulse 92 03/19/25 08:45 BP 150/80 H 03/19/25 08:45 Pulse Ox 98 03/19/25 08:45 Oxygen Delivery Method Room Air 03/19/25 08:45 BMI result Body Mass Index 28.1 GENERAL Well developed, Well nourished, in no apparent distress HEENT Head-Normocephalic Eyes- PERRLA, EOMI, Conjuctiva clear, lids WNL Ears- Canals clear, TMs WNL Mouth/Throat-No lesions, no erythema, no exudate Neck- Supple, No lymphadenopathy, thyroid WNL RESPIRATORY Normal I:E, Clear to auscultation CARDIOVASCULAR Regular, rate and rhythm, No murmurs or rubs GASTROINTESTINAL Soft, nontender, normal bowel sounds, no masses MUSCULOSKELETAL Back- nontender Joints- no pain swelling or deformity NEUROLOGICAL Gait normal PSYCHIATRIC Oriented to person, place and time Mood and affect WNL Appearance WNL Speech WNL Thought processes WNL Tobacco/Smoking Status: Tobacco use Status Tobacco use date assessed 03/19/25 03/19/25 08:48 Patient Tobacco Use Status Former Tobacco user 03/19/25 08:48 e-Cigarette/Vaping Use Former Use 03/19/25 08:48 PHQ-9: PHQ-9 Score PHQ-9: Total score 0 03/19/25 14:04 Depression Screening Interpretation: Negative Thrive Assessment: Date of Thrive Assessment Date Thrive assessed 03/19/25 03/19/25 08:48 Results Reviewed Results Reviewed: Labs done 03/18 were essentially normal. Coding Level of Care Code Established Pt Est Pt Level 3 (72049) Patient Type Established Diagnoses HTN (hypertension) I10 Time Spent (min) 25 Comment Time spent on chart review, medication reconciliation, H&P, patient education, orders Assessment & Plan Assessment & Plan (1) HTN (hypertension): Comment: BP today was 150/80 Code(s): I10 - Essential (primary) hypertension Category: Medical Plan: The patient's blood pressure readings have been elevated, with home measurements showing values such as 147/85 mmHg and 142/84 mmHg. The current dose of lisinopril will be increased from 20 mg to 30 mg to achieve better blood pressure control. The patient is advised to monitor blood pressure at home and report any significant changes or side effects, such as a persistent dry cough or swelling. Plan I discussed with the patient the need to increase the lisinopril dosage to better manage his blood pressure, given the recent elevated readings. We reviewed the potential side effects of lisinopril, including dry cough and swelling, and the importance of monitoring these symptoms. The patient was informed about the follow-up plan and the importance of regular blood pressure monitoring at home. Patient to follow up in 6 months or sooner if needed. Patient to monitor BP. Medications: New lisinopril dosage adjustment 30 mg PO DAILY 90 tabs 2RF Patient Instructions: - Increase lisinopril dose to 30 mg daily. - Monitor blood pressure at home twice a week. - Report any persistent dry cough or swelling. - Follow up in six months or sooner if symptoms worsen.
--- OUTSIDE RECORDS SUMMARY | 2025-03-19 17:30 | XMS_ITS | Clinical Summary ---
Author Organization [facility] Address [address] [place] [id number] Phone Care Team Providers Care Split Leather Mosser Name Role Phone Skyler Walden MD Primary [...] Office Visit [facility] [address] [id number] Keri Ford CNP Acute cough (Primary Dx) [...] [facility] Care Teams Split Leather Mosser Relationship Specialty Start Date End Date Skyler Walden MD [address] [place] [id number] PCP - General Internal Medicine 02/02/25 Additional Source Comments The information contained in this document represents components of the legal health record. It is not the complete legal health record.[facility]
--- OUTSIDE RECORDS SUMMARY | 2025-03-19 17:30 | XMS_ITS | Patient Health Record ---
Author Organization [facility] Address [address] [place] [address] Care Team Providers Care Bucket Pusher Name Role Phone Elvia (RETIRED) Luis Carlos ESCAMILLA Primary Care Provide r Unavailable Dayday Banks Unavailable [phone] Allergies No Known Allergies Reason For Referral [...] Problem Status W/U Status Risk Notes Problem [id number] Encounter for screening for malignant neoplasm of colon (Z12.11) Active confirmed Problem Screening for malignant neoplasm of rectum (383508341) Encounter for screening for malignant neoplasm of rectum (Z12.12) Active confirmed Problem 52301102 Preprocedural examination (Z01.818) Active confirmed Problem 480939687 Family history o f colon cancer (Z80.0) Active confirmed Problem 554965746 Hx of adenomatou s colonic polyps (Z86.010) Active confirmed Problem Diverticulosis of colon (240031429) Diverticulosis of colon (K57.30) Active confirmed Plan Of Treatment Pending Test Test Name Order Date Pathology 10/01/2021 Future Test Test Name Order Date COLONOSCOPY 12/16/2015 COLONOSCOPY 08/11/2021 Insurance Providers Payer Name Payer Address Payer Phone Subscriber Number Group Number Insured Name Patient Relationship to Insured Coverage Start Date Coverage End Date [facility] [place] [facility] [address] [place] [address] [id number] PROST, CONSTANT Self - patient is the insured Medical (General) History Medical History History ICD Code Hypertension Denies [place],DM,CVA,Lung disease,renal dise ase Negative colonoscopy in 07/[address] Burr Colonoscopy in April of 2016--small tu bular adenoma removed Surgical History Surgery Date(Month/Year) Appendectomy 2013 Left inguinal and umbilical hernia repai r 2010
== END 2025-03-19 14:24 | disposition home or self-care (01) ==
LOC: HO.HMCHD 13:49
PROVIDERS: PCP Physician Assistant Medical; Visit Provider Physician Assistant Medical
DX: I10 Essential (primary) hypertension (principal)

== ENCOUNTER → 2025-03-19 13:49 | Outpatient (BNVA) | payer OTHER, SELFPAY | PROVIDERS: PCP Physician Assistant Medical; Visit Provider Physician Assistant Medical | DX: Z76.89 Persons encountering health services in other specified circumstances (principal); I10 Essential (primary) hypertension; Z79.899 Other long term (current) drug therapy | CPT/HCPCS: 99212 ==